=== PATIENT | female | born 1955 | race Caucasian/White ===

== ENCOUNTER 2016-05-31 19:44 | Emergency (ER) | payer BC ==
--- NOTE | ~2016-05-31 | ER ---
PATIENT'S NAME: PRISCILLA ARCHER [facility] AGE: 60 Y [address] ROOM: [place] [id number] LOCATION: [facility] ADMIT DATE: 05/31/2016 ER/Outpatient Report DISCHARGE DATE: 05/31/2016 FAMILY PHYSICIAN: Sierra England MD ATTENDING PHYSICIAN: Scott Roberts Time of Arrival: 1950 hours. Time of Evaluation: 1950 hours. CHIEF COMPLAINT: Left flank pain, urinary frequency. HISTORY OF PRESENT ILLNESS: The patient states approximately 2 hours prior to arrival, she started having pain in the left lower back flank area radiates around into the left groin area, having urinary frequency. No pain per se with urination, just having to go more often; nauseated, but has not vomited. Had a soft bowel movement approximately half hour prior to arrival. She has been having troubles over the last couple of days with constipation. She ate some popcorn last night and that has set off her stomach she states. She describes the pain as being sharp. She has never had pain like this before. ALLERGIES: PENICILLIN. CURRENT MEDICATIONS: On the chart and reviewed by me. PAST MEDICAL HISTORY: Depression, GERD. PAST SURGICAL HISTORY: States she did have a colonoscopy done approximately 10 years ago and was told that she had mild diverticulitis at that time, and she has not had any problems with that since. Other surgeries include tonsillectomy, she is postmenopausal. SOCIAL HISTORY: She denies use of tobacco, drugs, or alcohol. REVIEW OF SYSTEMS: All negative other than those mentioned in the HPI. PHYSICAL EXAMINATION: VITAL SIGNS: 390.9 kg. Blood pressure is 169/94, pulse of 115, respirations PATIENT'S NAME: PRISCILLA ARCHER [facility] AGE: 60 Y [address] ROOM: [place] [address] LOCATION: [facility] ADMIT DATE: 05/31/2016 ER/Outpatient Report DISCHARGE DATE: 05/31/2016 FAMILY PHYSICIAN: Sierra England MD ATTENDING PHYSICIAN: Scott Roberts 16, temperature of 97.6, O2 saturation is 97% on room air. GENERAL: She is awake, alert, and oriented x4. SKIN: [place], warm, and dry. RESPIRATIONS: Even and nonlabored. Lung sounds are clear throughout. HEART: Regular rate and rhythm. ABDOMEN: Soft and nondistended. Bowel sounds are present. She is tender in the left lower quadrant area. LABORATORY DATA AND X-RAYS: The patient did not want any pain medicine at this time. Clean-catch UA was obtained. CBC and Chem panel were drawn. CBC is within normal limits. Chem panel shows a BUN of 26 with a creatinine of 1.5. GFR was 35. UA was positive for leukocytes and blood. CT scan stone protocol was obtained. Radiologist reports the patient has a 3 mm stone in the left kidney with mild hydronephrosis. The patient was given Toradol 60 mg IM. Results of lab and scan were discussed with the patient. IMPRESSION: Left renal calculi. PLAN: Home, rest. Pushing the fluids. Notus was written for pain. If symptoms persist and is not resolved within the next 2-3 days, she is to follow up with her primary provider, Sierra England, or return to the ER. She verbalized understanding. CHELSI ADAIR APRN FOR MD BETH ELKINS/livia /[id number] d: 06/01/16 0245 t: 06/03/16 1804, OUTPATIENT REPORT
[2016-05-31 20:08] LABS: BILIRUBIN URINE NEGATIVE (NEGATIVE); BLOOD URINE 150 /UL (NEGATIVE); GLUCOSE URINE NEGATIVE (NEGATIVE); KETONE URINE 5 mg/dL (NEGATIVE); LEUKOCYTES URINE 100 /UL (NEGATIVE); NITRITE URINE NEGATIVE (NEGATIVE); PROTEIN URINE NEGATIVE (NEGATIVE); UROBILINOGEN URINE NORMAL (NORMAL)
[2016-05-31 20:19] LABS: COLOR URINE YELLOW (YELLOW); TURBIDITY URINE CLEAR (CLEAR)
[2016-05-31 20:20] LABS: BASOPHIL # 0.1 K/uL (0.0-0.2); BASOPHIL % 0.5 %; EOSINOPHIL # 0.1 K/uL (0.0-0.5); EOSINOPHIL % 0.6 %; HEMATOCRIT 40.5 % (33.0-46.0); HEMOGLOBIN 13.5 g/dL (10.0-15.0); IMMATURE GRANULOCYTE % 0.3 %; LYMPHOCYTE % 9.8 %; MCH 31.2 pg (27.0-34.0); MCHC 33.3 gm/dL (32.0-36.5); MCV 93.5 fl (83.0-98.0); MONOCYTE # 0.5 K/uL (0.0-1.0); MONOCYTE % 4.9 %; MPV 9.4 fl (9.4-12.4); NEUTROPHIL # (ANC) 8.4 K/uL (1.8-7.8); NEUTROPHIL % 83.9 %; NRBC % 0 /100WBC (0-0.00); PLATELET COUNT 274 K/uL (150-450); RBC 4.33 M/uL (3.50-5.50); RDW-CV 13.1 % (11.9-14.6)
[2016-05-31 20:24] LABS: BACTERIA URINE RARE (NEGATIVE); EPITHELIAL URINE 0-2 #/HPF (NEGATIVE); HYALINE CAST URINE 0-2 #/LPF (NEGATIVE); MUCUS URINE 4+ (NEGATIVE)
[2016-05-31 20:37] LABS: ANION GAP 13.6 (10.0-19.0); CALCIUM 9.3 mg/dL (8.5-10.5); CREATININE 1.5 mg/dL (0.5-1.1); POTASSIUM 3.6 mMol/L (3.7-5.1); TOTAL BILIRUBIN 0.3 mg/dL (0.0-1.5); TOTAL PROTEIN 7.5 g/dL (6.0-8.4)
== END 2016-05-31 21:21 | disposition disaster alternative care site (69) ==
LOC: GMED 19:44
PROVIDERS: Nurse Practitioner Family
DX: N13.2 Hydronephrosis with renal and ureteral calculous obstruction (principal); F32.9 Major depressive disorder, single episode, unspecified; K21.9 Gastro-esophageal reflux disease without esophagitis; Z88.0 Allergy status to penicillin
CPT/HCPCS: J1885